=== PATIENT | male | born 1975 | race Caucasian/White ===

== ENCOUNTER 2016-08-24 14:03 | Emergency (ER) | payer OTHER, MEDICAID ==
[2016-08-24] MEDS ORDERED: HYDROcod/ACETAM 5/325 MG TABLET PO STA (14:22)
[2016-08-24] MEDS ORDERED: HYDROcod/ACETAM 5/325 MG TABLET ONE (14:25)
== END 2016-08-24 14:29 | disposition home or self-care (01) ==
DX: S60.222A Contusion of left hand, initial encounter (principal); S61.432A Puncture wound without foreign body of left hand, initial encounter; W22.03XA Walked into furniture, initial encounter; Y92.89 Other specified places as the place of occurrence of the external cause; Y99.0 Civilian activity done for income or pay; F17.200 Nicotine dependence, unspecified, uncomplicated
CPT/HCPCS: 73130; 99283; A9270

== ENCOUNTER 2023-03-21 10:07 | Emergency (ER) | payer MEDICAID ==
[2023-03-21] MEDS ORDERED: HYDROmorphone 1 MG/ML CARPUJECT IVP STA ×6 (11:26→19:28)
--- NOTE | 2023-03-21 11:28 | ED Physician Documentation ---
History of Present Illness - Stated complaint Stated Complaint: INCISION RED/PX - Chief complaint Chief Complaint: General - History obtained from History obtained from: Patient - Additonal information Additional information: 47-year-old gentleman with history of complicated diverticulitis necessitating multiple surgeries and an ostomy which was reversed in October of this year. Most of his surgical care has been at [facility]. Over the last couple of days he developed increasing pain redness swelling and more recently drainage from his prior stoma site on the right mid abdomen. No fevers. Pain is severe. PD PAST MEDICAL HISTORY - Past Medical History Past Medical History: Yes Cardiovascular: None Respiratory: None Neuro: None Endocrine/Autoimmune: None GI: Diverticulitis : None HEENT: None Psych: None Musculoskeletal: None - Past Surgical History Past Surgical History: Yes General: Appendectomy, Bowel surgery, Other - Present Medications Home Medications: Ambulatory Orders Medication Instructions Recorded Confirmed No Known Home Medications 03/21/23 03/21/23 - Allergies Allergies/Adverse Reactions: Allergies Allergy/AdvReac Type Severity Reaction Status Date / Time No Known Drug Allergies Allergy Verified 03/21/23 10:22 - Social History Does the pt smoke?: No Smoking Status: Former smoker Does the pt drink ETOH?: Yes Does the pt have substance abuse?: Yes Substance Use and Type: Marijuana - Immunizations Immunizations are current?: Yes PD ED PE NORMAL - Vitals Vital signs reviewed: Yes - General General: Alert and oriented X 3, No acute distress - Abdomen Abdomen: Soft, Other (He does not have diffuse tenderness. He has an old stoma site that looks like it is abscessed with a little bit of drainage and moderate surrounding cellulitis to the right mid abdomen.) - Neuro Neuro: Alert and oriented X 3 Results - Vitals Vitals: Vital Signs - 24 hr 03/21/23 03/21/23 03/21/23 10:23 11:36 12:46 Temperature 37.3 C Heart Rate 67 64 Respiratory 20 17 16 Rate Blood Pressure 157/90 H 166/99 H 148/87 H O2 Saturation 99 100 97 03/21/23 03/21/23 14:02 14:52 Temperature Heart Rate 66 64 Respiratory 17 17 Rate Blood Pressure 157/104 H 114/81 H O2 Saturation 99 97 Oxygen O2 Source Room air - Labs Labs: Laboratory Tests 03/21/23 03/21/23 03/21/23 11:30 11:30 13:25 WBC 8.8 RBC 4.93 Hgb 13.7 L Hct 41.2 L MCV 83.6 MCH 27.8 MCHC 33.3 RDW 14.7 Plt Count 288 MPV 9.5 Neut # (Auto) 6.1 Lymph # (Auto) 1.6 Lake # (Auto) 0.9 Eos # (Auto) 0.2 Baso # (Auto) 0.1 Absolute Nucleated RBC 0.00 Nucleated RBC % 0.0 Sodium 141 Potassium 4.1 Chloride 110 Carbon Dioxide 25 Anion Gap 6.0 BUN 15 Creatinine 0.8 Estimated GFR (MDRD) 104 Glucose 123 H Calcium 9.7 SARS-CoV-2 (PCR) NOT DETECTED - Rads (name of study) CT A/P Relevant Findings:: Final report received, Discussed with brenda, HEIDI independent interpretation of test PD Medical Decision Making - ED course Complexity details: reviewed results (CBC showing mild normocytic anemia, BMP normal) ED course: 47-year-old gentleman who is otherwise healthy other than a history of complicated diverticulitis with 9 surgeries, mesh in place, and reversed ostomy in October of this year now with an ostomy infection with abscess. He went over for CT which does demonstrate that there is an intraperitoneal component to this infection and I spoke with our on-call surgeon, Dr. Blackwood at 1:20 PM who recommended transfer to a tertiary facility given the complexity and potential need for biologic mesh or mesh salvage. [facility] where he has had his prior surgeries was called by the health community relations liaison approximately 1:30 PM. He received divided doses of Dilaudid with modest improvement in his pain. Also some IV Toradol. Zosyn was ordered after review of the CT. At approximately 2:50 PM I spoke with Dr. Karuna Marlow, general surgeon at [facility]. She reviewed prior op notes and would like us to consult with plastic surgery as they were involved with his care previously. Subsequently at about 3 PM I spoke with Dr. Nogueira, plastic surgery at [facility] who is happy to be involved but defers back to general surgery for admission. Departure - Departure Disposition: 02 Transfer Acute Care Hosp Clinical Impression: Intra-abdominal abscess post-procedure Condition: Serious Forms: PCP List
[2023-03-21 11:37] LABS: BASOPHILS # (AUTO) 0.1 10^3/uL (0.0-0.1); BASOPHILS % (AUTO) 0.6 %; EOSINOPHILS # (AUTO) 0.2 10^3/uL (0.0-0.7); EOSINOPHILS % (AUTO) 2.7 %; HCT - HEMATOCRIT 41.2 % (42.0-52.0); HGB - HEMOGLOBIN 13.7 g/dL (14.0-18.0); LYMPHOCYTES # (AUTO) 1.6 10^3/uL (1.5-3.5); LYMPHOCYTES % (AUTO) 17.6 %; MEAN CORPUSCULAR HEMOGLOBIN 27.8 pg (27.0-31.0); MEAN CORPUSCULAR HGB CONC 33.3 g/dL (32.0-36.0); MEAN CORPUSCULAR VOLUME 83.6 fL (80.0-94.0); MEAN PLATELET VOLUME 9.5 fL (7.4-11.4); MONOCYTES # (AUTO) 0.9 10^3/uL (0.0-1.0); MONOCYTES % (AUTO) 10.4 %; NEUTROPHILS # (AUTO) 6.1 10^3/uL (1.5-6.6); NEUTROPHILS % (AUTO) 68.5 %; PLT - PLATELET COUNT 288 10^3/uL (130-450); RED BLOOD COUNT 4.93 10^6/uL (4.70-6.10); RED CELL DISTRIBUTION WIDTH 14.7 % (12.0-15.0); WHITE BLOOD COUNT 8.8 x10^3/uL (4.8-10.8)
[2023-03-21 11:53] LABS: CALCIUM 9.7 mg/dL (8.5-10.3); CREATININE 0.8 mg/dL (0.6-1.3); POTASSIUM 4.1 mmol/L (3.5-4.5)
[2023-03-21] MEDS ORDERED: KETOROLAC 15 MG/ML VIAL IVP STA (12:37)
[2023-03-21] MEDS ORDERED: PIPERACILLIN/TAZOBACTAM 3.375 GM in SODIUM CHLORIDE 0.9% MINIBAG 100 ML IV STA (13:20)
[2023-03-21] MEDS ORDERED: LORazepam 2 MG/ML VIAL IVP STA (13:25)
[2023-03-21] MEDS ORDERED: iohexoL-300 100 ML VIAL IVP ONE (13:30)
--- NOTE | 2023-03-21 13:45 | CT Report ---
PROCEDURE: ABDOMEN/PELVIS W INDICATIONS: abd wall infection, ? deep abscess, IV only CONTRAST: Omni 300 100ml TECHNIQUE: After the administration of IV contrast, 5 mm thick sections acquired from the diaphragms to the symp hysis. 5 mm thick coronal and sagittal reformats were acquired. For radiation dose reduction, the f ollowing was used: automated exposure control, adjustment of mA and/or kV according to patient size. COMPARISON: None. FINDINGS: Image quality: Excellent. Lung bases and heart: Unremarkable. Liver: No solid mass. Gallbladder and biliary tree: Within normal limits. Spleen: No splenomegaly. Calcified granulomas can be seen within the spleen. Pancreas: No pancreatic ductal dilation. Adrenals: No adrenal nodule. Kidneys and ureters: No hydronephrosis. No renal cystic lesion which requires follow up. No solid mas s. Bowel and peritoneum: No bowel distension. No pathologic free fluid. Prior right hemicolectomy, sever al staple lines seen within the colon. Lymph nodes: No central or retroperitoneal adenopathy. Vessels: No infrarenal aortic aneurysm. PELVIS Reproductive organs: Unremarkable. Bladder: No abnormal wall thickening, accounting for underdistension. Pelvic lymph nodes: No pelvic adenopathy by size criteria. Bones: No aggressive osseous abnormality. Age-appropriate degenerative changes are seen. Other: Bilateral fat-containing inguinal hernias are seen. Extensive postoperative change and irregularity can be seen involving the anterior abdominal wall, wi th numerous areas of fatty stranding. No focal fluid collections are seen to suggest abscess. No abno rmal soft tissue gas can be seen. IMPRESSION: Abnormal anterior abdominal wall, with an appearance most consistent with scarring and cellulitis. No drainable abscess is seen. No abnormal soft tissue gas is seen. Prior right hemicolectomy, several stippling seen involving the colon. Additional findings: Prior granulomatous exposure. Bilateral fat-containing inguinal hernias Reviewed by: Wai Rodgers MD on 03/21/2023 12:44 PM [place] Approved by: Wai Rodgers MD on 03/21/2023 12:44 PM [facility] Station ID: [id number]
[2023-03-21] MEDS: D5.45NS W/20 MEQ KCL 1,000 ML IV SCH ×2 (15:54→15:57)
[2023-03-21 16:02] VITALS: O2SAT 100
[2023-03-21 18:56] VITALS: BP 142/88
== END 2023-03-21 19:51 | disposition short-term general hospital (02) ==
LOC: ED 10:07
DX: T81.43XA Infection following a procedure, organ and space surgical site, initial encounter (principal); K65.1 Peritoneal abscess; Z87.891 Personal history of nicotine dependence
CPT/HCPCS: 36415; 74177; 80048; 85025; 87635; 96365; 96375; 96376; 99284; 99285; J1170; J2060; Q9967